=== PATIENT | female | born 1980 | race Caucasian/White ===

== ENCOUNTER 2024-02-13 15:13 | Emergency (ER) | payer SELFPAY ==
[2024-02-13 15:31] VITALS: BP 116/81
[2024-02-13 15:41] LABS: % Basophils 1.5 % (0-2); % Eosinophils 0.7 % (0-6); % Immature Granulocytes 0.2 % (0-0.5); % Lymphocytes 44.9 % (20.5-51.1); % Monocytes 6.8 % (1.7-9.3); % Neutrophils 45.9 % (42.2-75.2); Absolute Basophils 0.1 10^3/uL (0-0.2); Absolute Lymphocytes 1.8 10^3/uL (1.2-3.4); Absolute Monocytes 0.3 10^3/uL (0.1-0.6); Absolute Neutrophils 1.9 10^3/uL (1.4-6.5); Hematocrit 35.1 % (37.0-47.0); Hemoglobin 12.1 g/dL (12.0-16.0); Mean Corp Hgb Conc. 34.5 g/dL (33.0-37.0); Mean Corpuscular Hgb 27.3 pg (27.0-31.0); Mean Corpuscular Volume 79.1 fL (81.0-99.0); Mean Platelet Volume 8.8 fL (7.4-10.4); Nucleated Red Blood Cells % 0 %; Platelet Count 224 10^3/uL (130-400); Red Blood Cell Count 4.44 10^6/uL (4.20-5.40); Red Cell Dist. Width 15.7 % (11.5-14.5); White Blood Cell Count 4.1 10^3/uL (4.8-10.8)
--- NOTE | 2024-02-13 15:47 | ED.GENMED ---
History of Present Illness
General
Chief Complaint: Crisis Evaluation
Source: patient
Exam Limitations: none
Time Seen by Provider: 02/13/24 15:37
Travel History
Have you had any contact with someone who has COVID-19?: No
Do you have any symptoms of coronavirus? Fever > 100 degrees, chills, cough, shortness of breath, sore throat, loss of taste or smell, muscle aches, or headache?: No
History of Present Illness
History of Present Illness:
MDM
Past History
Past History
ED Past Medical History: Psychiatric (Anxiety)
ED Past Surgical History: None
Social History
Tobacco: Non-smoker
Alcohol: Daily
Phy Exam
Physical Exam
Physical Exam:
See MDM
Course
Orders/Labs/Results
Orders:
Orders
02/13/24 15:23
Test Result ONCE
02/13/24 15:32
Acetaminophen Urgent
Alcohol Urgent
Complete Blood Count/With Diff Urgent
Comprehensive Metabolic Panel Urgent
HCG, Serum Qualitative Screen Urgent
Lipase Urgent
Salicylate Urgent
02/13/24 15:46
Electrocardiogram (*1) Urgent
Reason for Study: QTc Monitoring
EKG- Treatment ONCE
Urine Drug Abuse Screen Urgent
Abnormal Lab Results
02/13/24
15:32
WBC 4.1 L 10^3/uL
(4.8-10.8)
Hct 35.1 L %
(37.0-47.0)
MCV 79.1 L fL
(81.0-99.0)
RDW 15.7 H %
(11.5-14.5)
Chloride 111 H mmol/L
(98-107)
Carbon Dioxide 21 L mmol/L
(22-30)
AST 64 H U/L
(14-36)
Lipase 611 H U/L
(23-300)
Salicylates < 1.0 L mg/dl
(2.0-20.0)
Acetaminophen < 10 L ug/ml
(10-30)
02/13/24 15:32
02/13/24 15:32
Vital Signs
Initial and Last Documented VS:
Initial Vital Signs
Temp Pulse Resp BP Pulse Ox
98.7 F 99 16 116/81 99
02/13/24 15:31 02/13/24 15:31 02/13/24 15:31 02/13/24 15:31 02/13/24 15:31
Last Documented Vital Signs
Temp Pulse Resp BP Pulse Ox
98.7 F 99 16 116/81 99
02/13/24 15:31 02/13/24 15:31 02/13/24 15:31 02/13/24 15:31 02/13/24 15:31
MDM/Problems Addressed
Differential Diagnosis Includes:
HPI and MDM Narrative:
43-year-old female presenting on a petitioned 302. Per patient, she was drinking alcohol today and took 30 hydroxyzine. Patient states 'it was stupid because I was drunk'. Patient is currently denying suicidal homicidal thoughts. However, crisis
is at bedside during my HPI. Crisis indicated that police have pictures of text messages sent by patient threatening suicide. Patient is clinically intoxicated and states she never sent these text messages. Police filed a 302. Patient unwilling
to sign a 201. 302 will be filed and crisis will have psychiatry evaluate
Physical exam
General: Disheveled, clinically intoxicated, slurred speech
HEENT: protecting airway
Neck: appears supple
CV: No evidence of cyanosis
Resp: No accessory muscle use
Abd: Non-distended
Extremities: No deformities
Neuro: alert. Slurred speech. Moving all 4 extremities.
Psych: Depressed and anxious
Skin: Intact
Problems Addressed including Acute and Chronic Conditions affecting care:
1. Intentional overdose
Acuity: acute
Prognosis: stable
Details: Given the concern for suicide ideations while acting on them, police did file 302. Crisis will have psychiatry evaluate. Will obtain basic blood work and urine drug screen for medical clearance. Will continue to monitor. Patient
currently on a one-to-one with security
Updates
8:12 PM patient remains awake and alert and is declining any antianxiolytic
Differential Diagnosis (but not limited to): Intentional overdose, psychosis, alcohol abuse, intoxication, suicide attempt
Testing considered: CT head but she has no focal deficits
Drug therapy (if applicable): OTC meds, please see d/c instruction regarding Rx drugs
Amount and/or Complexity of Data Reviewed
Clinical info obtained from: Patient
External data reviewed: N/A
Labs I independently reviewed (but not limited to): Elevated alcohol level and lipase
Radiology: N/A
Pulse Ox: not hypoxic
EKG independently reviewed: sinus rhythm, normal axis, no STEMI
Director Of Partner Marketing: N/A
Critical Care: N/A
Risk of Complication:
Social Determinants of health: Poor social support
Discussed with other providers: N/A
Escalation of Care includes Admit/Obs: Patient currently in the 302. Crisis searching for bed search
Occasional wrong word or 'sound a like' substitutions may have occurred due to the inherent limitations of voice recognition software. Read the chart carefully and recognize, using context, where substitutions have occurred.
*Critical Care Note
Total Time (30-74mins, 75-104mins- exclusive of procedures): Not Applicable
ED Attending Note
-
Portions of this chart may have been created with voice recognition software.� Occasional wrong word or��sound alike� substitutions may have occurred due to the inherent limitations of voice recognition software.
Discharge Plan
Departure
Patient Disposition: Psych Facility
Date of Disposition: 02/13/24
Time of Disposition: 20:01
Patient Status:: 302
Discharge Problem:
Alcohol intoxication, Overdose
Prescriptions:
No Action
sertraline 50 mg Tablet
50 mg PO DAILY Qty: 30 0RF
prednisone 10 mg Tablet
See Rx Instructions .ROUTE .COMPLEX Qty: 45 0RF
Rx Instructions:
Take By Mouth:
50 mg daily x3 days, 40 mg daily x3 days,
30 mg daily x3 days, 20 mg daily x3 days,
10 mg daily x3 days
Pulmicort Flexhaler 90 mcg/actuation aerosol powdr breath activated
2 inh inhalation Q12H Qty: 1 0RF
Referrals:
Tati Cleveland MD [Family Provider] -
Interventions
Interventions:
ED-Psychological Assessment Last Done: 02/13/24 15:28
Discharge Date and Time
Print Language: WELSH
[2024-02-13 15:54] LABS: HCG, Serum Qualitative Screen Negative
[2024-02-13 16:02] LABS: ALT (SGPT) 32 U/L (0-35); AST (SGOT) 64 U/L (14-36); Acetaminophen < 10 ug/ml (10-30); Albumin 4.3 g/dl (3.5-5.0); Alkaline Phosphatase 74 U/L (38-126); Blood Urea Nitrogen 11 mg/dl (7-17); Calcium 8.4 mg/dl (8.4-10.2); Carbon Dioxide 21 mmol/L (22-30); Chloride 111 mmol/L (98-107); Glucose 92 mg/dl (70-99); Lipase 611 U/L (23-300); Potassium 4.4 mmol/L (3.5-5.1); Salicylate < 1.0 mg/dl (2.0-20.0); Sodium 145 mmol/L (135-145); Total Bilirubin 0.2 mg/dl (0.2-1.3); Total Protein 7.3 g/dl (6.3-8.2); eGFR > 60.00
[2024-02-13 16:11] LABS: Alcohol 335 mg/dl
--- NOTE | 2024-02-14 00:18 | ED.CRISIS ---
ED Crisis Note
ED Crisis Note
Subjective:
Patient nauseous appears tremulous
Objective:
Cooperative tremulous nauseous
Assessment/Plan:
Prior BAL noted suspect alcohol withdrawal will start saline and lorazepam
[2024-02-14 01:18] VITALS: BP 113/75
--- NOTE | 2024-02-14 07:00 | EDRN ---
Was told by RADHA Real that the patient pulled out her IV. Unsure what time the patient pulled out her IV. Patient does not have IV at this time.
--- NOTE | 2024-02-14 08:57 | ED.CRISIS ---
ED Crisis Note
ED Crisis Note
Subjective:
Patient with alcohol withdrawal symptoms
Assessment/Plan:
RN replacing IV�to be given IV benzos.
[2024-02-14 09:00] VITALS: BP 151/87
[2024-02-14] MEDS: ATIVAN 2 MG IV (10:50)
[2024-02-14] MEDS: NSS 1000 IV (10:52)
--- NOTE | 2024-02-14 13:52 | ED.CRISIS ---
ED Crisis Note
ED Crisis Note
Assessment/Plan:
Discussed with Dr. Manzano states that patient may be able to be placed at [facility] QTc is improved now at 420 ms.
== END 2024-02-14 16:42 ==
LOC: EMR 15:13
PROVIDERS: Student in an Organized Health Care Education/Training Program; EMERGENCY PHYSICIAN Emergency Medicine; FAMILY PHYSICIAN Family Medicine
DX: F10.129 Alcohol abuse with intoxication, unspecified (principal); T50.904A Poisoning by unspecified drugs, medicaments and biological substances, undetermined, initial encounter
CPT/HCPCS: 99285; 96374; 96361; 80053; 80143; 80179; 82077; 83690; 84703; 85025; 93005